=== PATIENT | female | born 1955 | race Caucasian/White ===

== ENCOUNTER → 2017-10-01 | Outpatient (CLI) | payer OTHER ==
[~2017-10-01] MED LIST: ACET325 PO; ALEN70 PO; CHOL10002 PO; Cipro500 MG PO; Cymbalta30 MG PO; DOCU100 PO; ESCI10 PO; EXELON TD; MEMA10 PO; METO50ER PO; Macrobid 100 M100 MG PO; Milk Of Ma400 MG/5 M PO; Multivitamin1 EAC1 PO; Nystatin15 GM TOP; ONDA4 PO; OXYC5 PO; PANT40 PO; PRAV20 PO; Pepto-Bism525 MG/15 PO; QUET100 PO; QUET25 PO; Zofran Odt4 MG SL
[2017-10-01 13:44] LABS: Bilirubin, Urine Neg (Neg); Blood, Urine Neg (Neg); Glucose Qualitative, Urine Neg (Neg); Ketones, Urine Neg (Neg); Leukocyte Esterase, Urine 2+ (Neg); Nitrite, Urine Pos (Neg); Protein, Urine Neg (Neg); Urobilinogen, Urine NORM (Normal)
[2017-10-01 13:49] LABS: Appearance, Urine Clear (Clear); Color, Urine Yellow (P-Yellow)
[2017-10-01 13:50] LABS: Bacteria Many /hpf; Red Blood Cells, Urine 0-2 /hpf (0-2); Squamous Epithelial Cells Few /hpf (Few)
== END | disposition home or self-care (01) ==
LOC: LAB SHORT 10:30 → LAB 10:30
PROVIDERS: Physician Assistant
DX: R25.9 Unspecified abnormal involuntary movements (principal)
CPT/HCPCS: 81001; 87077; 87086; 87186

== ENCOUNTER 2018-12-08 11:33 | Emergency (ER) | payer OTHER ==
[~2018-12-08] VITALS: Ht 157.5 cm; Wt 68.0 kg
[2018-12-09] MEDS ORDERED: Keflex500 MG PO (20:20)
[2018-12-09] MEDS ORDERED: Zofran8 MG PO (20:21)
== END 2018-12-08 12:53 | disposition home or self-care (01) ==
LOC: ER 11:33
DX: G30.9 Alzheimer's disease, unspecified (principal); F02.80 Dementia in other diseases classified elsewhere, unspecified severity, without behavioral disturbance, psychotic disturbance, mood disturbance, and anxiety; Z88.8 Allergy status to other drugs, medicaments and biological substances; Z79.891 Long term (current) use of opiate analgesic; Z79.899 Other long term (current) drug therapy
CPT/HCPCS: 99284

== ENCOUNTER 2018-12-09 16:23 | Emergency (ER) | payer OTHER ==
[~2018-12-09] VITALS: Ht 160 cm; Wt 72.6 kg
[2018-12-09 17:33] LABS: BASOPHILS ABSOLUTE AUTO 0.06 K/mm3 (0.00-0.23); BASOPHILS PERCENT AUTO 1 % (0-2); EOSINOPHILS ABSOLUTE AUTO 0.08 K/mm3 (0.00-0.68); EOSINOPHILS PERCENT AUTO 1 % (0-6); Hematocrit 40.1 % (33.0-51.0); Hemoglobin 13.3 g/dL (11.5-16.0); IMMATURE GRAN ABSOLUTE AUTO 0.03 K/mm3 (0.00-0.10); IMMATURE GRAN PERCENT AUTO 0 % (0-1); LYMPHOCYTES ABSOLUTE AUTO 1.13 K/mm3 (0.84-5.20); LYMPHOCYTES PERCENT AUTO 12 % (21-46); MONOCYTES ABSOLUTE AUTO 0.46 K/mm3 (0.16-1.47); MONOCYTES PERCENT AUTO 5 % (4-13); Mean Corpuscular HGB 30.1 pg (26.0-34.0); Mean Corpuscular HGB Conc 33.2 g/dL (31.5-36.5); Mean Corpuscular Volume 91 fL (80-100); Mean Platelet Volume 10.4 fL (9.1-12.4); NEUTROPHILS ABSOLUTE AUTO 7.81 K/mm3 (1.96-9.15); NEUTROPHILS PERCENT AUTO 82 % (41-73); Platelet Count 282 K/mm3 (150-400); RDW Coefficient Variation 13.1 % (11.7-14.2); RDW Standard Deviation 42.8 fL (35.1-46.3); Red Blood Cell Count 4.42 M/mm3 (3.80-5.20); White Blood Cell Count 9.57 K/mm3 (4.00-11.30)
[2018-12-09 17:52] LABS: Alanine Aminotransfer (ALT/SGP 29 U/L (12-78); Albumin, Blood 3.8 g/dL (3.4-5.0); Albumin/Globulin Ratio 0.9 (0.8-1.8); Alk Phos 117 U/L (50-136); Anion Gap 12 mmol/L (6-16); Aspartate Aminotrans (AST/SGOT 25 U/L (12-37); Bilirubin, Total 0.4 mg/dL (0.1-1.0); Blood Urea Nitrogen 10 mg/dL (8-24); Bun/Creatinine Ratio 11.1 (12.0-20.0); CO2, Blood 24 mmol/L (21-32); Calcium, Blood 9.6 mg/dL (8.5-10.1); Chloride, Blood 108 mmol/L (98-108); Globulin, Blood 4.1 g/dL (2.2-4.0); Glomerular Filtration Rate >60 (60-); Glucose, Blood 179 mg/dL (70-99); Sodium, Blood 144 mmol/L (136-145); Total Protein, Blood 7.9 g/dL (6.4-8.2)
[2018-12-09 19:56] LABS: Source, Urine Clean Catch
[2018-12-09 20:00] LABS: Bilirubin, Urine Neg (Neg); Blood, Urine 1+ (Neg); Glucose Qualitative, Urine Neg (Neg); Ketones, Urine 4+ (Neg); Leukocyte Esterase, Urine 2+ (Neg); Nitrite, Urine Neg (Neg); Protein, Urine 2+ (Neg); Urobilinogen, Urine NORM (Normal)
[2018-12-09 20:13] LABS: Appearance, Urine Hazy (Clear); Color, Urine Yellow (P-Yellow)
[2018-12-09 20:14] LABS: Amorphous Light (0-Heavy); Bacteria Few /hpf; Mucus Mod (0-Heavy); Red Blood Cells, Urine Rare /hpf (0-2); Squamous Epithelial Cells Rare /hpf (Few); White Blood Cells, Urine 25-50 /hpf (0-5)
[2018-12-09] MEDS ORDERED: Keflex500 MG PO (20:20)
[2018-12-09] MEDS ORDERED: Zofran8 MG PO (20:21)
== END 2018-12-09 21:04 | disposition home or self-care (01) ==
LOC: ER 16:23
PROVIDERS: Physician Assistant
DX: N39.0 Urinary tract infection, site not specified (principal); E86.0 Dehydration; R41.82 Altered mental status, unspecified; F03.90 Unspecified dementia, unspecified severity, without behavioral disturbance, psychotic disturbance, mood disturbance, and anxiety; Z88.8 Allergy status to other drugs, medicaments and biological substances; Z79.899 Other long term (current) drug therapy
CPT/HCPCS: 36415; 71045; 74018; 80053; 81001; 83690; 85025; 87077; 87086; 87186; 96372; 99283-25; J2405; J7030; P9612

== ENCOUNTER → 2019-02-03 | Outpatient (CLI) | payer OTHER ==
[~2019-02-03] MED LIST changes: +Keflex500 MG PO; +Zofran8 MG PO
[2019-02-03 14:58] LABS: Source, Urine Clean Catch
[2019-02-03 15:40] LABS: Bilirubin, Urine Neg (Neg); Blood, Urine Neg (Neg); Glucose Qualitative, Urine Neg (Neg); Ketones, Urine Neg (Neg); Leukocyte Esterase, Urine 1+ (Neg); Nitrite, Urine Neg (Neg); Protein, Urine 1+ (Neg); Specific Gravity, Urine 1.025 (1.003-1.022); Urobilinogen, Urine NORM (Normal)
[2019-02-03 15:57] LABS: Appearance, Urine Clear (Clear); Bacteria Many /hpf; Color, Urine Yellow (P-Yellow); Red Blood Cells, Urine Not Seen /hpf (0-2); Squamous Epithelial Cells Mod /hpf (Few)
== END | disposition home or self-care (01) ==
LOC: LAB 12:46 → LAB SHORT 12:46
PROVIDERS: Physician Assistant
DX: N39.0 Urinary tract infection, site not specified (principal)
CPT/HCPCS: 81001; 87077; 87086; 87186

== ENCOUNTER 2019-03-21 04:59 | Emergency (ER) | payer OTHER ==
[~2019-03-21] VITALS: Ht 149.9 cm; Wt 49.9 kg
[2019-03-21] MEDS ORDERED: ALEN70 PO (05:21)
[2019-03-21] MEDS ORDERED: PARO20 (05:22)
[2019-03-21 05:35] LABS: Calcium, Ionized (POC) 1.13 mmol/L (1.10-1.46); Chloride (POC) 110 mmol/L (98-108); Creatinine (POC) 0.9 mg/dL (0.6-1.0); Glucose (ISTAT POC) 84 mg/dL (70-99); Hemoglobin (POC) 11.2 g/dL (12.0-16.0); Potassium (POC) 4.1 mmol/L (3.5-5.5); Sodium (POC) 142 mmol/L (135-148); Total CO2 (POC) 25 mmol/L (21-32)
[2019-03-21] MEDS ORDERED: Cephalexin250 MG/5 M PO (05:52)
== END 2019-03-21 09:00 | disposition home or self-care (01) ==
LOC: ER 04:59
PROVIDERS: Emergency Medicine
DX: J18.9 Pneumonia, unspecified organism (principal); Z88.8 Allergy status to other drugs, medicaments and biological substances; Z79.899 Other long term (current) drug therapy
CPT/HCPCS: 36415; 71045; 80047; 85014; 96365; 99285-25; J0696

== ENCOUNTER 2019-08-30 11:41 | Emergency (ER) | payer OTHER ==
[~2019-08-30] VITALS: Ht 167.6 cm; Wt 59.0 kg
[~2019-08-30 11:41] MED LIST changes: +Cephalexin250 MG/5 M PO; +PARO20
== END 2019-08-30 13:06 | disposition home or self-care (01) ==
LOC: ER 11:41
DX: S70.01XA Contusion of right hip, initial encounter (principal); I10 Essential (primary) hypertension; K21.9 Gastro-esophageal reflux disease without esophagitis; E78.5 Hyperlipidemia, unspecified; F32.9 Major depressive disorder, single episode, unspecified; Z88.8 Allergy status to other drugs, medicaments and biological substances; Z79.899 Other long term (current) drug therapy; W18.30XA Fall on same level, unspecified, initial encounter
CPT/HCPCS: 72170; 99283-25

== ENCOUNTER 2020-03-20 22:11 | Emergency (ER) | payer OTHER ==
[~2020-03-20] VITALS: Ht 162.6 cm; Wt 63.5 kg
== END 2020-03-20 23:13 | disposition home or self-care (01) ==
LOC: ER 22:11
DX: S00.01XA Abrasion of scalp, initial encounter (principal); I10 Essential (primary) hypertension; K21.9 Gastro-esophageal reflux disease without esophagitis; E78.5 Hyperlipidemia, unspecified; F32.9 Major depressive disorder, single episode, unspecified; F02.80 Dementia in other diseases classified elsewhere, unspecified severity, without behavioral disturbance, psychotic disturbance, mood disturbance, and anxiety; G30.9 Alzheimer's disease, unspecified; Z79.899 Other long term (current) drug therapy; W18.30XA Fall on same level, unspecified, initial encounter
CPT/HCPCS: 93005; 93010; 99283-25

== ENCOUNTER 2020-04-01 08:47 | Inpatient (IN) | payer OTHER ==
[~2020-04-01] VITALS: Ht 167.6 cm; Wt 52.6 kg
[~2020-04-01 08:47] MED LIST changes: +METO25ER PO; -METO50ER PO; -PARO20; +PARO20 PO
[2020-04-01 09:28] LABS: BASOPHILS ABSOLUTE AUTO 0.09 K/mm3 (0.00-0.23); BASOPHILS PERCENT AUTO 1 % (0-2); EOSINOPHILS ABSOLUTE AUTO 0.18 K/mm3 (0.00-0.68); EOSINOPHILS PERCENT AUTO 1 % (0-6); Hematocrit 52.9 % (33.0-51.0); Hemoglobin 15.9 g/dL (11.5-16.0); IMMATURE GRAN ABSOLUTE AUTO 0.05 K/mm3 (0.00-0.10); IMMATURE GRAN PERCENT AUTO 0 % (0-1); LYMPHOCYTES ABSOLUTE AUTO 3.72 K/mm3 (0.84-5.20); LYMPHOCYTES PERCENT AUTO 29 % (21-46); MONOCYTES ABSOLUTE AUTO 1.17 K/mm3 (0.16-1.47); MONOCYTES PERCENT AUTO 9 % (4-13); Mean Corpuscular HGB 29.7 pg (26.0-34.0); Mean Corpuscular HGB Conc 30.1 g/dL (31.5-36.5); Mean Corpuscular Volume 99 fL (80-100); Mean Platelet Volume 12.3 fL (9.1-12.4); NEUTROPHILS ABSOLUTE AUTO 7.82 K/mm3 (1.96-9.15); NEUTROPHILS PERCENT AUTO 60 % (41-73); Platelet Count 285 K/mm3 (150-400); RDW Coefficient Variation 13.6 % (11.7-14.2); RDW Standard Deviation 48.9 fL (35.1-46.3); Red Blood Cell Count 5.35 M/mm3 (3.80-5.20); White Blood Cell Count 13.03 K/mm3 (4.00-11.30)
[2020-04-01 09:36] LABS: Albumin, Blood 3.7 g/dL (3.4-5.0); Albumin/Globulin Ratio 0.8 (0.8-1.8); Bilirubin, Total 0.7 mg/dL (0.1-1.0); Bun/Creatinine Ratio 30.4 (12.0-20.0); Calcium, Blood 9.4 mg/dL (8.5-10.1); Creatinine, Blood 1.35 mg/dL (0.40-1.00); Globulin, Blood 4.9 g/dL (2.2-4.0); Potassium, Blood 4.5 mmol/L (3.5-5.5); Total Protein, Blood 8.6 g/dL (6.4-8.2)
[2020-04-01 09:40] LABS: Source, Urine Catheter
[2020-04-01 09:50] LABS: Bilirubin, Urine Neg (Neg); Blood, Urine 5+ (Neg); Glucose Qualitative, Urine Neg (Neg); Ketones, Urine 1+ (Neg); Leukocyte Esterase, Urine 2+ (Neg); Nitrite, Urine Neg (Neg); Protein, Urine 2+ (Neg); Specific Gravity, Urine 1.025 (1.003-1.022); Urobilinogen, Urine NORM (Normal)
[2020-04-01 09:57] LABS: Appearance, Urine Hazy (Clear); Color, Urine Amber (P-Yellow)
[2020-04-01 09:59] LABS: Bacteria Many /hpf; Squamous Epithelial Cells Few /hpf (Few)
[2020-04-01 10:00] LABS: Mucus Light (0-Heavy)
[2020-04-01] MEDS ORDERED: ACET325 PO (16:25)
[2020-04-01] MEDS ORDERED: VITAMIN D325 MC3 PO (16:32)
[2020-04-01] MEDS ORDERED: OXYC5 PO (16:33)
[2020-04-01] MEDS ORDERED: LORA1 PO (16:34)
[2020-04-01 18:18] LABS: Calcium, Blood 8.7 mg/dL (8.5-10.1); Creatinine, Blood 1.37 mg/dL (0.40-1.00); Potassium, Blood 3.9 mmol/L (3.5-5.5)
--- NOTE | 2020-04-01 18:28 | NUR ---
PT ARRIVED TO THE MEDICAL FLOOR AT 1620 FROM THE ED VIA GURNEY, THE PT IS NON VERBAL , CONTINUOSLY THRASHING, MOANING, ATTEMPTED TO ORIENT THE PT TO THE CALL SYSTEM, PT HAS BLANK STARE, PT APPEARS TO BE BREATHING EASILY ON RA AT THIS TIME, PT GIVEN MORPHINE X1 SO FAR THIS SHIFT, THE SEEMS TO HAVE CALMED SOMEWHAT, SIDE RAILS UP X3 FOR PATIENT SAFETY, BED ALARM ON
[2020-04-02 00:01] LABS: Bun/Creatinine Ratio 24.6 (12.0-20.0); Calcium, Blood 8.4 mg/dL (8.5-10.1); Creatinine, Blood 1.22 mg/dL (0.40-1.00)
[2020-04-02 06:00] LABS: BASOPHILS ABSOLUTE AUTO 0.05 K/mm3 (0.00-0.23); BASOPHILS PERCENT AUTO 1 % (0-2); EOSINOPHILS ABSOLUTE AUTO 0.33 K/mm3 (0.00-0.68); EOSINOPHILS PERCENT AUTO 3 % (0-6); Hematocrit 42.1 % (33.0-51.0); Hemoglobin 12.4 g/dL (11.5-16.0); IMMATURE GRAN ABSOLUTE AUTO 0.05 K/mm3 (0.00-0.10); IMMATURE GRAN PERCENT AUTO 1 % (0-1); LYMPHOCYTES ABSOLUTE AUTO 3.07 K/mm3 (0.84-5.20); LYMPHOCYTES PERCENT AUTO 30 % (21-46); MONOCYTES ABSOLUTE AUTO 1.07 K/mm3 (0.16-1.47); MONOCYTES PERCENT AUTO 10 % (4-13); Mean Corpuscular HGB 29.5 pg (26.0-34.0); Mean Corpuscular HGB Conc 29.5 g/dL (31.5-36.5); Mean Corpuscular Volume 100 fL (80-100); NEUTROPHILS ABSOLUTE AUTO 5.72 K/mm3 (1.96-9.15); NEUTROPHILS PERCENT AUTO 56 % (41-73); Platelet Count 206 K/mm3 (150-400); RDW Coefficient Variation 13.5 % (11.7-14.2); RDW Standard Deviation 50.3 fL (35.1-46.3); White Blood Cell Count 10.29 K/mm3 (4.00-11.30)
[2020-04-02 06:23] LABS: Albumin, Blood 2.9 g/dL (3.4-5.0); Albumin/Globulin Ratio 0.8 (0.8-1.8); Bilirubin, Total 0.5 mg/dL (0.1-1.0); Calcium, Blood 7.7 mg/dL (8.5-10.1); Creatinine, Blood 1.04 mg/dL (0.40-1.00); Globulin, Blood 3.6 g/dL (2.2-4.0); Potassium, Blood 3.7 mmol/L (3.5-5.5); Total Protein, Blood 6.5 g/dL (6.4-8.2)
[2020-04-02 14:37] LABS: Bun/Creatinine Ratio 17.8 (12.0-20.0); Calcium, Blood 7.8 mg/dL (8.5-10.1); Creatinine, Blood 1.01 mg/dL (0.40-1.00); Potassium, Blood 3.4 mmol/L (3.5-5.5)
--- NOTE | 2020-04-02 14:52 | NUR ---
Pt resting in bed upon arrival. Pt mumbles intermittently other abarca no verbal response. Offered gentle voice and therapeutic touch. Spoke with Bedside NELLY Ferris and discussed case. Pt currently full care. Current weight 115 pounds. Called and spoke with Pt's father Tashi. Provided update and offered therapeutic listening. Tashi states "I gave all rights and decision making to the state including providing care for her". Tashi reports no concerns at this time. Called and spoke with facility nurse Enid. Enid reports at baseline Pt requires full care but is ambulatory with standby assist. Pt requires assistance with transfers, ambulation, bathing, dressing, is incontinent, and assistance with feeding. Pt's weight in September was 143 pounds. Pt's appetite has significantly decreased recently. Enid reports hospice consideration may be beneficial for Pt. Called and spoke with Pt's casemanager Lesly. She denies father's statement in regarding decision making. Lesly reports the state does not make medical decisions for patients. Spoke with Dr Rodriguez and discussed case. Dr Rodriguez reports having discussion with Pt's daughter regarding goals of care including hospice. Daughter will have further discussions with her brother. Called and spoke with Pt's daughter Ghada. Offered emotional support as Ghada is tearful through conversation. Answered questions and educated on hospice philosophy. Ghada reports leaning towards hospice. Provided hospice agencies to choose from. Ghada reports plan to discuss further with her brother and will call Palliative Care back with decision. PPS 30% ADLs 6/6 FAST 7C 19% weight loss in the last 6 months Pt appears appropriate for hospice services if family chooses this option. Palliative Care will remain available.
--- NOTE | 2020-04-02 18:12 | NUR ---
PT IS ALERT. OPENS EYES TO VERBAL STIMULI, THE PT IS NON VRBAL, THE PT IS VERY RESTLESS AND MOANS THOUGH IN PAIN WHILE AWAKE, THE PT WAS GIVEN MORPHINE X3 THIS SHIFT, THE PT WAS MEDICATED WITH NYSTATIN FOR A YEAST INFECTION UNDER HER BREAST, PT WAS MADE NPO TODAY DUE TO ASPIRATION RISK, THE PT HAS BROWN/BLOOD TINGED SECRETIONS COMING FROM HER MOUTH,MOUTH CARE WAS PROVIDED MUCH THE PT WOULD LET, CALL LIGHT IN REACH, WILL CONTINUE TO MONITOR AND ASSESS FOR CHANGES
--- NOTE | 2020-04-02 18:25 | NUR ---
Initial spiritual care note: Salma was non-verbal and appeared to be in restless sleep. I sat with her and stroked her forehead, calming her down. Prayer provided. I will remain available to pt and family.
[2020-04-02 20:26] LABS: Bun/Creatinine Ratio 13.8 (12.0-20.0); Calcium, Blood 7.5 mg/dL (8.5-10.1); Creatinine, Blood 1.09 mg/dL (0.40-1.00); Potassium, Blood 3.5 mmol/L (3.5-5.5)
[2020-04-03 01:47] LABS: BASOPHILS ABSOLUTE AUTO 0.05 K/mm3 (0.00-0.23); BASOPHILS PERCENT AUTO 1 % (0-2); EOSINOPHILS ABSOLUTE AUTO 0.41 K/mm3 (0.00-0.68); EOSINOPHILS PERCENT AUTO 4 % (0-6); Hematocrit 36.1 % (33.0-51.0); IMMATURE GRAN ABSOLUTE AUTO 0.06 K/mm3 (0.00-0.10); IMMATURE GRAN PERCENT AUTO 1 % (0-1); LYMPHOCYTES ABSOLUTE AUTO 3.03 K/mm3 (0.84-5.20); LYMPHOCYTES PERCENT AUTO 33 % (21-46); MONOCYTES ABSOLUTE AUTO 0.98 K/mm3 (0.16-1.47); MONOCYTES PERCENT AUTO 11 % (4-13); Mean Corpuscular HGB 29.3 pg (26.0-34.0); Mean Corpuscular HGB Conc 30.5 g/dL (31.5-36.5); Mean Corpuscular Volume 96 fL (80-100); Mean Platelet Volume 11.5 fL (9.1-12.4); NEUTROPHILS ABSOLUTE AUTO 4.78 K/mm3 (1.96-9.15); NEUTROPHILS PERCENT AUTO 52 % (41-73); Platelet Count 161 K/mm3 (150-400); RDW Coefficient Variation 13.4 % (11.7-14.2); RDW Standard Deviation 47.8 fL (35.1-46.3); Red Blood Cell Count 3.76 M/mm3 (3.80-5.20); White Blood Cell Count 9.31 K/mm3 (4.00-11.30)
[2020-04-03 02:04] LABS: Bun/Creatinine Ratio 11.7 (12.0-20.0); Calcium, Blood 7.2 mg/dL (8.5-10.1); Creatinine, Blood 1.11 mg/dL (0.40-1.00)
--- NOTE | 2020-04-03 05:00 | NUR ---
SUMMARY: PT REMAINS NONVERBAL AND MOSTLY NONRESPONSIVE BUT DOES OPEN EYES TO VOICE AND MAKES EYE CONTACT. SHE'S VERY GUARDED, WEAK, STIFF/RIGID AND RESISTANT TO CARE/ADL'S. SHE CONTINUES NPO FOR ASPIRATION RISK AND INABILITY TO FOLLOW INSTRUCTION. LIPS REMAIN DRY W/DARK FLAKEY SCABS OBSERVED AND MOUTH CARE ATTENDED TO TOLERATED. TURN SCHEDULE MAINTAINED AND ATTENDS CHANGED PRN FOR URINARY INCONTINENCE. D5 1/2 NS INFUSES PER EMAR AND SODIUM LEVELS ARE IMPROVING. SHE APPEARS PAINFUL AT TIMES WHEN AWAKE AND CAN BECOME VERY RESTLESS AND AGGITATED IN BED. MORPHINE 2.5MG IV PRN RECIEVED FOR GOOD EFFECT AT CALMING PT AND PROMOTING SLEEP/REST. NO ACUTE CHANGES, VSS/AFEBRILE. SHE'S NSR AT 70'S-90'S BPM PER TELEMETRY. WCTM AND REPORT TO DAY RN.
[2020-04-03 08:20] LABS: Anion Gap 8 mmol/L (6-16); Blood Urea Nitrogen 11 mg/dL (8-24); Bun/Creatinine Ratio 11.2 (12.0-20.0); CO2, Blood 22 mmol/L (21-32); Calcium, Blood 6.9 mg/dL (8.5-10.1); Chloride, Blood 113 mmol/L (98-108); Creatinine, Blood 0.99 mg/dL (0.40-1.00); Glomerular Filtration Rate >60 (60-); Glucose, Blood 141 mg/dL (70-99); Potassium, Blood 2.9 mmol/L (3.5-5.5); Sodium, Blood 143 mmol/L (136-145)
--- NOTE | 2020-04-03 13:47 | NUR ---
Pt resting in bed with her eyes closed. This RN did not disturb Pt at this time. Pt appears comfortable with no S/S of distress at this time. Reviewed chart and discussed case with Bedside RN Reshma. Pt had an episode of vomiting ealier this shift and medication given with good effect. Pt still not eating or drinking. Pt not cooperative with attempts for oral care and keeps her mouth closed. Pt's daughter called earlier leaving voicemail with request for return phone call for update. Attmepted to call and left message with request for return call. Plan: Therapeutic conversations with daughter regarding goals of care. Palliative Care will remain available.
--- NOTE | 2020-04-03 16:18 | NUR ---
Spoke with Pt's daughter Ghada. Provided update and engaged in therapeutic discussion regarding goals of care. Ghada reports having conversation with her brother and other family members, with all family members in agreement to pursue comfort measures only and hospice. Re-enforced education of comfort care and hospice philosophy with V/U made by Ghada. Ghada would like comfort care measures implimented. She expresses concerns of Pt being D/C from hospital before she can visit Pt. She expresses concerns once Pt is back at [facility] she will not be able to visit. She requests for Pt D/C be delayed until she can come down and visit her tomorrow late morning or early afternoon. Instructed request will be relayed to MD and Test Car Driver. Ghada expresses appreciation of conversation. Spoke with Dr Rodriguez and relayed family wishes for comfort care, hospice, and ability to visit Pt before D/C from hospital. Dr Rodriguez agreeable with plan. Placed order for comfort care and order for Ativan per V/O from Dr Rodriguez. Plan will be to continue current orders until family arrives tomorrow. Dr Rodriguez would like ST to evaluate Pt as well. Spoke with Bedside RN Reshma and discussed case. Spoke with [place] Test Car Driver Ashley, relayed request and plan. Received call from Annika Ash. Discussed case and plan. Palliative Care will remain available for symptom management and supportive visits.
--- NOTE | 2020-04-03 17:46 | NUR ---
Spiritual care note: Salma appeared restless again today. But when I tried to calm her through touch/words of assurance, she became more restless and made loud moaning sounds. RN immediately responded. I understand dtr to arrive tomorrow. I gayathri remain available for this visit.
--- NOTE | 2020-04-03 17:54 | NUR ---
SHIFT SUMMARY THE PT WAS CALM AND SLEEPING DURING THE FIRST HALF OF THE SHIFT HOWEVER THE PT BECAME AGITATED AND MOANED IN PAIN AFTER LUNCH. WE WERE ABLE TO GET THE PT TO IDENTIFY THAT IT WAS HER STOMACH THAT WAS CAUSING HER PAIN SO A SUPPOSITORY WAS GIVEN WHICH PRODUCED A MODERATE AMOUNT OF HARD/DRY STOOL. THE PT APPEARED IN LESS PAIN AFTER THE BM HOWEVER BEGAN FLOPPING IN BED SO A THIRD SIDE-RAIL WAS RAISED HOWEVER, THE PT WAS ABLE TO WIGGLE TO THE OPPOSITE SIDE OF THE BED AND SLIDE OUT. THE PT WAS ASSESSED AND PLACED BACK IN BED W A NEW ORDER FOR A RUBY VEST. DR. DE LA ROSA ORDERED THE PT COMFORT CARE LATE IN THE SHIFT BUT HE WANTS THE FLUIDS AND ABX TO CONTINUE UNTILL THE DAUGHTER IS ABLE TO COME IN. PT WAS GIVEN ONE DOSE OF ATIVAN DUE TO CONTINUED AGITATION, THE PT APPEARS MORE COMFORTABLE AFTER THE ATIVAN. WILL PASS ON TO MAINTENANCE WORKER HOUSE TRAILER RN TO MONITOR THE CONSTIPATION.TM.
--- NOTE | 2020-04-03 19:00 | NUR ---
COMFORT CARE APPEARS TO BE RESTING WITHOUT COMPLAINTS AT THIS TIME. BED IN LOWEST POSITION. CALL LIGHT IN REACH. WILL CONTINUE WITH CURRENT PLAN OF CARE.
--- NOTE | 2020-04-03 21:00 | NUR ---
COMFORT CARE APPEARS TO BE IN DISTRESS. GRABBING ABDOMEN WHILE WRITHING AND BUCKING APPEARING TO BE IN PAIN; MEDICATED PER EMAR FOR PAIN. CHANGED ATTENDS AND RE-POSITIONED IN BED. ATTEMPTED ORAL CARE; REFUSED. FLUIDS CONTINUE TO INFUSED WITHOUT COMPLICATION. WILL CONTINUE WITH CURRENT PLAN OF CARE. BED IN LOWEST POSITION
--- NOTE | 2020-04-03 23:00 | NUR ---
COMFORT CARE WRITHING AND BUCKING APPEARING TO BE IN PAIN. DISTRESS NOTED; MEDICATED FOR ANXIETY. STARTED HAVING EMESIS; MEDICATED FOR NAUSEA/VOMITING. GIVEN ORAL CARE WITH SUCTION. ATTENDS CHANGE; REPOSITIONED IN BED. RUBY VEST REMOVED. FLUIDS STOPPED; SHOWING SIGNS OF FLUID OVERLOAD. WILL RELAY TO ONCALL PROVIDER. BED IN LOWEST POSITION. WILL CONTINUE WITH CURRENT PLAN OF CARE AND UPDATE NEEDED.
--- NOTE | 2020-04-04 | NUR ---
PHYSICIAN CORRESPONDENCE EXPLAINED THAT PATIENT HAS BEEN IN DISTRESS SINCE START OF SHIFT. AGITATED, PAINFUL, WRITHING, BUCKING AND SQUIRMING. EXPLAINED THAT THERE WAS A PALLIATIVE CARE CONFERENCE 04/03/20 AND IT WAS STATED TO CONTINUE CURRENT PLAN UNTIL PATIENT DAUGHTER ARRIVED FOR VISIT.
--- NOTE | 2020-04-04 00:35 | NUR ---
FAMILY CORRESPONDENCE NO ANSWER. LEFT MESSAGE TO CALL WITH NUMBER GIVEN.
--- NOTE | 2020-04-04 00:55 | NUR ---
FAMILY CORRESPONDENCE SPOKE TO DAUGHTER ABOUT CURRENT PLAN OF CARE. STATES WANTS MOTHER TO BE FREE OF PAIN AND COMFORTABLE. WILL UPDATE ON-CALL PHYSICIAN OF WISHES.
--- NOTE | 2020-04-04 01:00 | NUR ---
COMFORT CARE APPEARS TO BE RESTING. CONTINUES TO SCOOT DOWN IN BED; FREQUENT REPOSITIONING REQUIRED. BED REMAINS IN LOWEST POSITION; ALARM ON.
--- NOTE | 2020-04-04 01:22 | NUR ---
COMFORT CARE APPEARS TO BE RESTING AT THIS TIME. OUT OF RUBY RESTRAINT. BED IN LOWEST POSITION; ALARM ON. WILL BE CALLING PHYSICIAN WITH REGARDS TO NEW INFORMATION FROM DAUGHTER.
--- NOTE | 2020-04-04 03:00 | NUR ---
COMFORT CARE APPEARS TO BE RESTING. NO ACUTE NEEDS AT THIS TIME. BED REMAINS IN LOWEST POSITION; ALARM ON. WILL CONTINUE WITH CURRENT PLAN OF CARE.
--- NOTE | 2020-04-04 04:48 | NUR ---
SHIFT SUMMARY NON-VERBAL, RESPONDS MINIMALLY TO PAINFUL AND VERBAL STIMULI. SEE ALL PREV JYOTI NOTES FOR UPDATES ON CONDITION. CURRENTLY APPEARS TO BE RESTING. NO ACUTE NEEDS AT THIS TIME. RUBY THOMAS D/C'd @ 0010. COMFORT MEASURE MEDS ORDERED BY ON-CALL PROVIDER PER DAUGHTER. INCONT; ATTENDS CHANGES AND REPOSITIONING ROUTINELY. BED REMAINED IN LOWEST POSITION; ALARM ON. CONTINUE WITH CURRENT PLAN OF CARE. REPORT TO ONCOMING RN.
--- NOTE | 2020-04-04 05:00 | NUR ---
COMFORT CARE MEDICATED PER EMAR FOR AGITATION. ATTENDS CHANGE; REPOSITIONED. ORAL CARE COMPLETED. NO OTHER ACUTE NEEDS AT THIS TIME. BED IN LOWEST POSITION; ALARM ON. WILL CONTINUE WITH CURRENT PLAN OF CARE.
--- NOTE | 2020-04-04 05:00 | NUR ---
COMFORT CARE APPEARS TO BE AGITATED. WILL MEDICATE FOR ANXIETY. NO OTHER ACUTE CHANGES NOTED. BED REMAINS IN LOWEST POSITION; ALARM ON. WILL CONTINUE WITH CURRENT PLAN OF CARE.
--- NOTE | 2020-04-04 09:16 | NUR ---
Pt resting in bed upon arrival. Pt is non verbal and appears mildly agitated. Pt received pain medication approximately one hour ago. Spoke with Bedside RN Reshma, discussed case, and reviewed comfort medications. Palliative Care will remain available.
--- NOTE | 2020-04-04 13:32 | NUR ---
Comfort Care Visit Received call from Bedside NELLY Justice reporting family has arrived and requesting Palliative Care visit. Pt resting in bed with her eyes closed. Pt appears comfortable at this time. Mild secretions noted. Daughter October inquires about secretions. Instructed medications can be offered to help manage secretions. Continued therapeutic listening and answered questions. Family expresses appreiation of visit and report no other concerns. Spoke with Bedside NELLY Justice and discussed case. Reshma will offer scopolamine patch and atropine drops for management of secretions. Palliative Care will remain available.
--- NOTE | 2020-04-04 15:13 | NUR ---
Late Entry from previous visit. Spoke with Dr Rodriguez and discussed case. Ordered Haldol 1-2mg Q 6 Hours PRN for agitation and D/C maintenance medications per V/O from Dr Rodriguez.
--- NOTE | 2020-04-04 16:43 | NUR ---
Joint visit with Dr Rodriguez to answer questions and address concerns for family. Pt lying in bed and appears agitated as evidenced by moaning and thrashing of head and lower extremities. Bedside RN Reshma is offering comfort medications including haloperidol. Offered therapeutic listening and answered questions when appropriate. Dr Rodriguez answers questions and discusses prognosis. Family expresses appreciation of visit and reports no other concerns at this time. Provided Palliative Care contact information and instructed to call with any questions or concerns. By end of visit Pt appears comfortable with no S/S of distress at this time. Pt's discomfort appears to be agitation related. Recommend offering Haldol as needed for comfort. Palliative Care will remain available for symptom management and supportive visits.
--- NOTE | 2020-04-04 19:00 | NUR ---
COMFORT CARE APPEARS TO BE RESTING. NO ACUTE NEEDS AT THIS TIME. WILL CONTINUE WITH CURRENT PLAN OF CARE. BED IN LOWEST POSITION; ALARM ON.
--- NOTE | 2020-04-04 20:35 | NUR ---
SHIFT SUMMARY: ON COMFORT CARE. NON VERBAL AT BASELINE. HAD VISIT FROM DAUGHTER AND BROTHER FROM OUT OF [place]OWN TODAY. MEDICATED FOR PAIN, SECRETIONS, NAUSEA, AND AGITATION PER EMAR. REPOSITIONED PRN, BUT WILL SCOOT AND END UP ON HER BACK OFTEN. DOES NOT COOPERATE WITH ORAL CARE AND RESISTS PERICARE. IVF D/C'D. WILL GRUNT AND MOAN OCCASIONALLY. PLAN IS FOR POSSIBLE D/C BACK TO [facility] WITH HOSPICE.
--- NOTE | 2020-04-04 21:00 | NUR ---
COMFORT CARE APPEARS TO BE RESTING. NO ACUTE NEEDS AT THIS TIME. BED REMAINS IN LOWEST POSITION; ALARM ON. BED IN LOWEST POSITION; ALARM ON.
--- NOTE | 2020-04-04 23:00 | NUR ---
COMFORT CARE APPEARS TO BE ANXIOUS AND PAINFUL. REPOSITIONED. ORAL CARE AND SUCTION COMPLETED. WILL MEDICATE FOR ANXIETY AND PAIN. BED REMAINS IN LOWEST POSITION; ALARM ON. CALL LIGHT IN REACH. WILL CONTINUE WITH CURRENT PLAN OF CARE.
--- NOTE | 2020-04-05 01:00 | NUR ---
COMFORT CARE REPOSITION. ORAL CARE AND SUCTION PROVIDED. MEDICATED FOR ANXIETY. WILL CONTINUE WILL CURRENT PLAN OF CARE. BED IN LOWEST POSITION; ALARM. NO ACUTE CHANGES AT THIS TIME.
--- NOTE | 2020-04-05 03:00 | NUR ---
COMFORT CARE APPEARED TO PAINFUL; MEDICATED PER EMAR. ORAL CARE AND SUCTION PREFORMED. ATTENDS DRY. NO OTHER ACUTE CHANGES NOTED. BED REMAINS IN LOWEST POSITION; ALARM ON. WILL CONTINUE WITH CURRENT PLAN OF CARE.
--- NOTE | 2020-04-05 05:00 | NUR ---
COMFORT CARE APPEARS TO BE RESTING. NO ACUTE NEEDS AT THIS TIME. BED IN LOWEST; ALARM ON. WILL CONTINUE WITH CURRENT PLAN OF CARE.
--- NOTE | 2020-04-05 05:12 | NUR ---
SHIFT SUMMARY NON-VERBAL, WILL RESPOND TO ANY KIND OF TOUCH, NOISE OR MOVEMENT WITH GRUNTING AND MOANING. MEDICATED T/O NIGHT FOR PAIN, ANXIETY, SECRETIONS AND NAUSEA. ORAL CARE/SUCTIONING PERFORMED T/O SHIFT. NO VOID OVERNIGHT. ATTEMPTED REPOSITION OVERNIGHT; HOWEVER, EXTREMELY STIFF AND DIFFICULT TO PLACE IN THE EVENT SHE HAS EMESIS. BED REMAINS IN LOWEST POSITION; ALARM ON. WILL CONTINUE WITH CURRENT PLAN OF CARE. REPORT TO ONCOMING RN.
[2020-04-05] MEDS ORDERED: TRANSDERM-SCOP1 EAC3 TD (10:21)
[2020-04-05] MEDS ORDERED: Fleet Enema132 ML PR (10:21)
[2020-04-05] MEDS ORDERED: Ativan1 MG PO (12:11)
[2020-04-05] MEDS ORDERED: MORP20L PO (12:11)
--- NOTE | 2020-04-05 15:44 | NUR ---
DISCHARGE SUMMARY PATIENT IS LETHARGIC. LEFT WITH [facility].
== END 2020-04-05 15:40 | disposition home or self-care (01) | DRG 683 ==
LOC: ER 08:47 → MEDS 12:35 → ENPENDDIS 04-05 10:03 → MEDS 04-05 15:40
PROVIDERS: Physician Assistant; ADMIT Family Medicine
DX: N17.9 Acute kidney failure, unspecified (principal); E87.0 Hyperosmolality and hypernatremia; G31.09 Other frontotemporal neurocognitive disorder; Z66 Do not resuscitate; R62.7 Adult failure to thrive; Z20.828 Contact with and (suspected) exposure to other viral communicable diseases; F02.80 Dementia in other diseases classified elsewhere, unspecified severity, without behavioral disturbance, psychotic disturbance, mood disturbance, and anxiety; R82.71 Bacteriuria; E86.0 Dehydration; E78.5 Hyperlipidemia, unspecified; I12.9 Hypertensive chronic kidney disease with stage 1 through stage 4 chronic kidney disease, or unspecified chronic kidney disease; N18.9 Chronic kidney disease, unspecified; B96.20 Unspecified Escherichia coli [E. coli] as the cause of diseases classified elsewhere; F41.9 Anxiety disorder, unspecified; Z51.5 Encounter for palliative care; G30.9 Alzheimer's disease, unspecified; K21.9 Gastro-esophageal reflux disease without esophagitis
CPT/HCPCS: 36415; 74019; 80048; 80053; 81001; 83605; 85025; 87040; 87077; 87086; 87186; 92610; 94762; 96361; 96365; 99285-25; A9270; J0696; J1630; J1650; J2060; J2270; J2405; J3480; J7030; J7042; J7070; J7120; P9612